=== PATIENT | female | born 2000 | race Caucasian/White ===

== ENCOUNTER → 2024-06-11 13:35 | Day surgery (SDC) | payer BC, SELFPAY | LOC: GI 13:35 | PROVIDERS: ATTENDING PHYSICIAN Internal Medicine | DX: K62.5 Hemorrhage of anus and rectum (principal); R19.7 Diarrhea, unspecified | CPT/HCPCS: 45378 ==

== ENCOUNTER 2024-11-23 13:51 | Emergency (ER) | payer SELFPAY ==
[2024-11-23 13:59] VITALS: BP 139/96
[2024-11-23] MEDS: MOTRIN 600 MG PO (16:07)
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
== END 2024-11-23 17:06 | disposition home or self-care (01) ==
LOC: EMR 13:51
PROVIDERS: EMERGENCY PHYSICIAN Student in an Organized Health Care Education/Training Program; FAMILY PHYSICIAN Family Medicine
DX: S39.012A Strain of muscle, fascia and tendon of lower back, initial encounter (principal); S16.1XXA Strain of muscle, fascia and tendon at neck level, initial encounter; S00.83XA Contusion of other part of head, initial encounter; S60.212A Contusion of left wrist, initial encounter; V49.49XA Driver injured in collision with other motor vehicles in traffic accident, initial encounter
CPT/HCPCS: 99284; 70160; 72050; 72110; 73110